=== PATIENT | male | born 1960 | race Caucasian/White ===

== ENCOUNTER → 2018-06-30 | Outpatient (CLI) | payer OTHER ==
[2018-06-30 12:04] LABS: ALANINE AMINOTRANSFERASE 47 U/L (21-72); ALBUMIN 3.7 g/dL (3.5-5.0); ALKALINE PHOSPHATASE 75 U/L (38-126); ANION GAP 6 (5-19); ASPARTATE AMINO TRANSFERASE 51 U/L (17-59); BILIRUBIN,DIRECT 0.3 mg/dL (0.0-0.4); BILIRUBIN,TOTAL 0.4 mg/dL (0.2-1.3); BLOOD UREA NITROGEN 19 mg/dL (7-20); CARBON DIOXIDE 28 mmol/L (22-30); CHLORIDE 100 mmol/L (98-107); GLUCOSE 109 mg/dL (75-110); SODIUM 134.1 mmol/L (137-145); TOTAL PROTEIN 6.5 g/dL (6.3-8.2)
== END ==
LOC: OD 10:56
PROVIDERS: ATTEND Internal Medicine Geriatric Medicine
DX: I10 Essential (primary) hypertension (principal)
CPT/HCPCS: 36415; 80053

== ENCOUNTER 2019-11-24 11:55 | Emergency (ER) | payer OTHER ==
[2019-11-24] MEDS ORDERED: NORMAL SALINE 1000 ML 1,000 ML IV ONE (12:06)
[2019-11-24] MEDS ORDERED: HYDROMORPHONE HCL INJ/PF 2 MG/ML AMPULE IV ONE ×2 (12:06→15:03)
[2019-11-24] MEDS ORDERED: ONDANSETRON HCL INJ/PF 4 MG/2 ML SDV IV ONE (12:07)
--- NOTE | 2019-11-24 12:10 | ER Document Report ---
ED Extremity Problem, Upper - General Chief Complaint: Shoulder Pain Stated Complaint: FALL/SHOULDER PAIN Time Seen by Provider: 11/24/19 12:06 Primary Care Provider: JOSE J FONTANEZ MD [Primary Care Provider] - Follow up as needed Mode of Arrival: Wheelchair Information source: Patient TRAVEL OUTSIDE OF THE [place] IN LAST 30 DAYS: No - HPI Notes: Patient presents with severe left posterior shoulder pain. He states this star nelson just before arrival. It started after he fell approximately 8 feet. He complains of constant pain. Is worse with movement and better with rest. It radiates into his chest. It is a sharp sensation. He states is hard to take a deep breath. - Related Data Allergies/Adverse Reactions: Penicillins Allergy (Verified 11/24/19 12:32) Past Medical History - General Information source: Patient - Social History Smoking Status: Former Smoker Frequency of alcohol use: None Drug Abuse: None Family History: Reviewed & Not Pertinent Review of Systems - Review of Systems Constitutional: denies: Chills, Fever Cardiovascular: denies: Chest pain, Palpitations Respiratory: Short of breath. denies: Cough -: Yes All other systems reviewed and negative Physical Exam - Vital signs Vitals: Temp 97.7 F 11/24/19 12:08 Interpretation: Normal - General General appearance: Alert, Anxious - HEENT Head: Normocephalic, Atraumatic Eyes: Normal Pupils: PERRL - Respiratory Respiratory status: No respiratory distress Chest status: Nontender Breath sounds: Decreased air movement Chest palpation: Normal - Cardiovascular Rhythm: Regular Heart sounds: Normal auscultation Murmur: No - Abdominal Inspection: Normal Distension: No distension Bowel sounds: Normal Tenderness: Nontender Organomegaly: No organomegaly - Back Back: Normal, Nontender - Extremities General upper extremity: Normal color, Normal temperature, Other - left arm held adducted, limited rom secondary to pain. diffusely tender to palp, mostly posterior General lower extremity: Normal inspection, Nontender, Normal color, Normal ROM, Normal temperature, Normal weight bearing. No: Zulema's sign - Neurological Neuro grossly intact: Yes Cognition: Normal Orientation: AAOx4 [place] Coma Scale Eye Opening: Spontaneous [place] Coma Scale Verbal: Oriented [place] Coma Scale Motor: Obeys Commands [place] Coma Scale Total: 15 Speech: Normal Motor strength normal: LUE, RUE, LLE, RLE Sensory: Normal - Psychological Associated symptoms: Normal affect, Normal mood - Skin Skin Temperature: Warm Skin Moisture: Dry Skin Color: Normal Course - Re-evaluation Re-evalutation: 11/24/19 15:13 Patient states he fell approximately 8 feet off of a scaffolding. CT scan shows patient to have 6 rib fractures with a small possible hemothorax and no obvious pneumothorax. He has no abdominal pain. His vital signs been stable for approximately 3 hours. Patient will be transferred to [facility] for further evaluation. Called and discussed case with [facility] who accepted pt 11/24/19 15:15 - Vital Signs Vital signs: Temp Pulse Resp BP Pulse Ox 97.7 F 19 138/86 H 95 11/24/19 12:16 11/24/19 14:04 11/24/19 13:46 11/24/19 14:04 - Laboratory Result Diagrams: 11/24/19 13:00 11/24/19 13:00 Laboratory results interpreted by me: 11/24/19 11/24/19 13:00 13:00 WBC 21.6 H RBC 3.97 L Hgb 13.4 L MCV 99 H MCH 33.8 H Lymphocytes % (Manual) 7 L Monocytes % (Manual) 19 H Abs Neuts (Manual) 16.0 H Abs Monocytes (Manual) 4.1 H Chloride 110 H Glucose 117 H AST 64 H ALT 61 H Albumin 3.4 L - Diagnostic Test Radiology reviewed: Image reviewed, Reports reviewed Discharge - Discharge Clinical Impression: Flail chest, initial encounter for closed fracture, Right wrist pain Condition: Serious Disposition: [facility]
--- NOTE | 2019-11-24 13:03 | RADIOLOGY REPORT (SQ) ---
EXAM DESCRIPTION: SHOULDER LEFT 2 OR MORE VIEWS IMAGES COMPLETED DATE/TIME: 11/24/2019 12:53 pm REASON FOR STUDY: fall/pain COMPARISON: None. NUMBER OF VIEWS: Three views. TECHNIQUE: Internal rotation, external rotation, and Y view images acquired of the left shoulder. LIMITATIONS: None. FINDINGS: MINERALIZATION: Normal. BONES: Fracture of the body of the scapula. JOINTS: No dislocation. VISUALIZED LUNGS AND RIBS: No pneumothorax. Fractures of the 3rd, 4th, 5th, 6th, and 7th ribs as vis ualized. SOFT TISSUES: No radiopaque foreign body. OTHER: No other significant finding. IMPRESSION: 1. FRACTURE OF THE SCAPULA. NO FRACTURE OR DISLOCATION OF THE GLENOHUMERAL JOINT. 2. MULTIPLE LEFT RIB FRACTURES. TECHNICAL DOCUMENTATION: JOB ID: [id number] 2010 [employer]- All Rights Reserved Reading location - IP/workstation name: [email or web address]
--- NOTE | 2019-11-24 13:05 | RADIOLOGY REPORT (SQ) ---
EXAM DESCRIPTION: CHEST SINGLE VIEW IMAGES COMPLETED DATE/TIME: 11/24/2019 12:53 pm REASON FOR STUDY: fall/pain COMPARISON: None. EXAM PARAMETERS: NUMBER OF VIEWS: One view. TECHNIQUE: Single frontal radiographic view of the chest acquired. RADIATION DOSE: NA LIMITATIONS: None. FINDINGS: LUNGS AND PLEURA: Slight hazy appearance of the left hemithorax with pleural thickening. No pneumothorax. MEDIASTINUM AND HILAR STRUCTURES: No masses. Contour normal. HEART AND VASCULAR STRUCTURES: Heart normal in size. Normal vasculature. BONES: Displaced fractures of the left 3rd, 4th, 5th, 6th, and 7th ribs. Fractures involve both the posterior and lateral portions of the ribs. HARDWARE: None in the chest. OTHER: No other significant finding. IMPRESSION: MULTIPLE DISPLACED LEFT RIB FRACTURES DESCRIBED. NO PNEUMOTHORAX. HAZY APPEARANCE O F THE LEFT HEMITHORAX COULD BE DUE TO PULMONARY CONTUSION. LEFT PLEURAL THICKENING COULD BE DUE TO P LEURAL EFFUSION/ HEMOTHORAX. TECHNICAL DOCUMENTATION: JOB ID: [id number] 2010 [employer]- All Rights Reserved Reading location - IP/workstation name: [email or web address]
[2019-11-24 13:14] LABS: HEMATOCRIT 39.4 % (37.9-51.0); HEMOGLOBIN 13.4 g/dL (13.5-17.0); MEAN CORPUSCULAR HEMOGLOBIN 33.8 pg (27.0-33.4); MEAN CORPUSCULAR HGB CONC 34.1 g/dL (32.0-36.0); MEAN CORPUSCULAR VOLUME 99 fl (80-97); PLATELET COUNT 223 10^3/uL (150-450); RED BLOOD COUNT 3.97 10^6/uL (4.35-5.55); RED CELL DISTRIBUTION WIDTH 13.2 % (11.5-14.0); WHITE BLOOD COUNT 21.6 10^3/uL (4.0-10.5)
[2019-11-24 13:31] LABS: ABSOLUTE LYMPHOCYTES# (MANUAL) 1.5 10^3/uL (0.5-4.7); ABSOLUTE MONOCYTES # (MANUAL) 4.1 10^3/uL (0.1-1.4); BASOPHILS % (MANUAL) 0 % (0-2); EOSINOPHILS % (MANUAL) 0 % (0-6); LYMPHOCYTES % (MANUAL) 7 % (13-45); MONOCYTES % (MANUAL) 19 % (3-13); SEGMENTED NEUTROPHILS % (MAN) 74 % (42-78); TOTAL CELLS COUNTED 100
[2019-11-24 13:32] LABS: PLATELET COMMENT ADEQUATE
[2019-11-24 13:40] LABS: ALBUMIN 3.4 g/dL (3.5-5.0); ALKALINE PHOSPHATASE 73 U/L (38-126); ANION GAP 5 (5-19); ASPARTATE AMINO TRANSFERASE 64 U/L (17-59); BILIRUBIN,DIRECT 0.1 mg/dL (0.0-0.4); BILIRUBIN,TOTAL 0.5 mg/dL (0.2-1.3); BLOOD UREA NITROGEN 18 mg/dL (7-20); CALCIUM 8.5 mg/dL (8.4-10.2); CARBON DIOXIDE 22 mmol/L (22-30); CHLORIDE 110 mmol/L (98-107); GLUCOSE 117 mg/dL (75-110); POTASSIUM 3.9 mmol/L (3.6-5.0); TOTAL PROTEIN 6.3 g/dL (6.3-8.2)
--- NOTE | 2019-11-24 14:33 | RADIOLOGY REPORT (SQ) ---
EXAM DESCRIPTION: CTA CHEST IMAGES COMPLETED DATE/TIME: 11/24/2019 2:05 pm REASON FOR STUDY: fall/chest pain COMPARISON: None. TECHNIQUE: CT scan of the chest performed using helical scanning technique with dynamic intravenous contrast injection. Images reviewed with lung, soft tissue and bone windows. Reconstructed coronal and sagittal MPR images reviewed. Additional 3 dimensional post-processing performed to develop Maximal Intensity Projection images (FL P). All images stored on PACS. All CT scanners at this facility use dose modulation, iterative reconstruction, and/or weight based d osing when appropriate to reduce radiation dose to as low as reasonably achievable (ALARA). [facility]: Dose Right [facility]: CareDose [facility]: Dose Right [facility]: Teradose 4D [facility]: [place] CONTRAST TYPE AND DOSE: contrast/concentration: Isovue 350.00 mg/ml; Total Contrast Delivered: 61.0 ml; Total Saline Delivered: 34.0 ml Contrast bolus adequate for pulmonary arteries and aorta. RENAL FUNCTION: BUN 18 creatinine 0.86. RADIATION DOSE: CT Rad equipment meets quality standard of care and radiation dose reduction techniq ues were employed. CTDIvol: 20.2 - 33.1 mGy. DLP: 863 mGy-cm. . LIMITATIONS: None. FINDINGS: LUNGS AND PLEURA: Left pleural effusion. Scattered parenchymal densities in both lung bas es. A few tiny bubbles of gas in the pleural space of the left hemithorax. AORTA AND GREAT VESSELS: No aneurysm. No dissection. HEART: No pericardial effusion. No significant coronary artery calcifications. PULMONARY ARTERIES: No emboli visualized in the main pulmonary arteries or the segmental branches. HILAR AND MEDIASTINAL STRUCTURES: No identified masses or abnormal nodes. HARDWARE: None in the chest. UPPER ABDOMEN: No significant findings. Limited exam. THYROID AND OTHER SOFT TISSUES: No masses. No adenopathy. BONES: Minimally displaced fracture of the body of the left scapula. Multiple displaced posterior an d lateral rib fractures on the left involving the 3rd, 4th, 5th, 6th, 7th, and 8th ribs. A few tiny bubbles of gas are present in the adjacent soft tissues of the chest wall. 3D MIPS: Confirm above findings. OTHER: No other significant finding. IMPRESSION: 1. NORMAL CTA OF THE CHEST. NO PULMONARY EMBOLI. NO AORTIC INJURY. 2. MULTIPLE DISPLACED LEFT-SIDED RIB FRACTURES DESCRIBED. LEFT PLEURAL EFFUSION PROBABLY DUE TO H EMOTHORAX. SCATTERED PARENCHYMAL DENSITIES IN THE LUNG BASES MAY BE DUE TO ATELECTASIS AND/OR CONTUS ION. A FEW TINY BUBBLES OF GAS ARE PRESENT IN THE PLEURAL SPACE OF THE LEFT HEMITHORAX BUT NO SIGNIF ICANT PNEUMOTHORAX. 3. MINIMALLY DISPLACED FRACTURE OF THE LEFT SCAPULA. COMMENT: Quality ID # [id number]: Final reports with documentation of one or more dose reduction techniques (e.g., Automated exposure control, adjustment of the mA and/or kV according to patient size, use of iterative reconstruction technique) TECHNICAL DOCUMENTATION: JOB ID: [id number] 2010 [employer]- All Rights Reserved Reading location - IP/workstation name: [email or web address] [place]
--- NOTE | 2019-11-24 15:29 | RADIOLOGY REPORT (SQ) ---
EXAM DESCRIPTION: WRIST RIGHT 3 VIEWS IMAGES COMPLETED DATE/TIME: 11/24/2019 3:19 pm REASON FOR STUDY: fall/pain COMPARISON: None. NUMBER OF VIEWS: Three views. TECHNIQUE: AP, lateral, and oblique radiographic images acquired of the right wrist. LIMITATIONS: None. FINDINGS: MINERALIZATION: Normal. BONES: No acute fracture or dislocation. No worrisome bone lesions. Normal alignment. SOFT TISSUES: No soft tissue swelling. No foreign body. OTHER: No other significant finding. IMPRESSION: NEGATIVE STUDY OF THE RIGHT WRIST. NO RADIOGRAPHIC EVIDENCE OF ACUTE INJURY. TECHNICAL DOCUMENTATION: JOB ID: [id number] 2010 [employer]- All Rights Reserved Reading location - IP/workstation name: [email or web address]
[2019-11-24 16:01] VITALS: BP 156/87
== END 2019-11-24 16:15 | disposition short-term general hospital (02) ==
LOC: ER 11:55
DX: S42.112A Displaced fracture of body of scapula, left shoulder, initial encounter for closed fracture (principal); S22.42XA Multiple fractures of ribs, left side, initial encounter for closed fracture; M25.531 Pain in right wrist; R06.02 Shortness of breath; W17.89XA Other fall from one level to another, initial encounter; Y99.0 Civilian activity done for income or pay; Z88.0 Allergy status to penicillin
CPT/HCPCS: 96376; 99284; 96361; 96374; 96375; 36415; 85025; 80053; 71045; 73030; 73110; 71275; J1170; J2405; J7030